=== PATIENT | female | born 1970 | race Caucasian/White ===

== ENCOUNTER → 2020-10-11 14:27 | Outpatient (CLI) | payer OTHER, SELFPAY ==
--- NOTE | 2020-10-11 14:40 | MR_ITS ---
PROCEDURE INFORMATION: Exam: MR Left Lower Extremity Without Contrast, Femur Exam date and time: 10/11/2020 2:40 PM Age: 50 years old Clinical indication: Pain; Thigh; Left; Additional info: Pain in left femur. PT fell sep 30 and has had posterior leg pain from hip to knee. Posterior leg bruising. No prior. TECHNIQUE: Imaging protocol: MR of the Left femur without contrast. COMPARISON: No relevant prior studies available. FINDINGS: Bones/joints: Minimal patellofemoral joint effusion. Evaluation of the knee is limited. Synovial and meniscal cysts: A multiloculated Piedra's cyst is visualized. Tendons: Complete tear of the left hamstring tendons, with approximately 2-3 cm of retraction distally. There is swelling adjacent to left hamstring tendon tear. A large fluid collection or hematoma is also identified in this region, which extends inferiorly within the posterior thigh. This measures 3.4 x 5.5 x 18.3 cm and is hyperintense on the IR sequence. A few focal areas of T1 hyperintensity are identified adjacent to the hamstring tendons at the level of the proximal to mid femoral shaft. One of the larger abnormalities measures 2.2 x 1.7 x 1.0 cm. These findings are consistent with hematomas. Muscles: See Tendons finding. Additional soft tissue swelling and patchy muscle edema is identified more inferiorly within the posterior left thigh. Soft tissues: See above. Lymph nodes: Nonspecific inguinal lymph nodes bilaterally. Nerves: The sciatic nerve appears thickened with surrounding swelling. There is increased IR signal intensity within this nerve, posterior to the acetabulum. Neuropathy is considered, although neural injury cannot be excluded. IMPRESSION: 1. Complete tear of the left hamstring tendons, with approximately 2-3 cm of retraction distally. 2. There is swelling adjacent to left hamstring tendon tear. A large fluid collection or hematoma is also identified in this region, which extends inferiorly within the posterior thigh. 3. A few focal areas of T1 hyperintensity are identified adjacent to the hamstring tendons at the level of the proximal to mid femoral shaft consistent with hematomas. 4. A multiloculated Piedra's cyst is visualized. 5. Minimal patellofemoral joint effusion. 6. The sciatic nerve appears thickened with surrounding swelling. Neuropathy is considered, although neural injury cannot be excluded. 7. Additional findings described above.
== END ==
PROVIDERS: PCP Physician Assistant Medical; Visit Provider Orthopaedic Surgery Adult Reconstructive Orthopaedic Surgery
DX: M79.652 Pain in left thigh (principal)
CPT/HCPCS: 73718

== ENCOUNTER 2020-11-12 12:26 | Emergency (ER) | payer OTHER, SELFPAY ==
[2020-11-12] VITALS (13 sets, daily range): BP systolic 103–128; BP diastolic 52–69; PULSE 77–104; RESP 18–20; TEMP 35.4–37.9; O2SAT 97–99; BMI 32.8
--- NOTE | 2020-11-12 12:40 | XR_ITS ---
PROCEDURE: XR CHEST PORTABLE CLINICAL HISTORY: fever Fever and cough COMPARISON: No exams were available for comparison FINDINGS: The cardiomediastinal silhouette and pulmonary vascularity are within normal limits. In the left hilar region there is a 8 mm nodular opacity. In the left mid to lower lung zone medially there is a 9 mm nodular opacity. Either 1 of these could represent overlapping vessels. Cannot exclude pulmonary nodule specially in the left mid to lower lung zone. The follow-up PA and lateral chest may provide further evaluation. No lobar consolidation or collapse . Small calcific density is present medial to the right humeral neck. IMPRESSION: No acute finding. Possible left-sided pulmonary nodules versus vessels on end Dictated by: James Mejía MD 11/12/2020 13:13 James Mejía MD in [place] 11/12/2020 13:13
[2020-11-12 12:48] LABS: Influenza A, PCR Not Detected (NotDetected); Influenza B, PCR Not Detected (NotDetected)
[2020-11-12 13:11] LABS: Coronavirus 19, PCR Detected (NotDetected)
--- NOTE | 2020-11-12 13:13 | [facility].EDGENADL ---
ED Disposition Clinical Impression: COVID Disposition: Home, Self-Care Condition on Discharge: Good Additional Instructions: Keep your appointment for monoclonal antibody infusion. Return to emergency department for worsening shortness of breath, chest pain, nausea or vomiting. Referrals: Evy Salmeron PA [Primary Care Provider] - (Call your PCP tomorrow) Time of Disposition: 14:01 - Critical Care Critical Care Time: No Attestation: On 11/12/20, the high probability of a clinically significant, sudden or life threatening deterioration of the following system(s) required my full and direct attention, intervention and personal management. The time I documented below is in addition to time spent performing reported procedures but includes the following listed in this critical care notation. Medical Decision Making - Medical Records Medical records reviewed: Yes: I reviewed the patient's medical records. - Grant Inquiry Pt receiving controlled substance: No Vital Signs: 11/12/20 12:27 Temperature 100.3 F H Temperature Source Oral Pulse Rate [Right Radial] 104 H Respiratory Rate 18 Blood Pressure [Right Arm] 103/56 L Blood Pressure Mean [Right Arm] 71 Blood Pressure Source [Right Arm] Automatic Cuff Blood Pressure Position [Right Arm] Sitting 02 Sat by Pulse Oximetry 97 Oxygen Delivery Method Room Air - Lab Data Lab results reviewed: Yes: I reviewed the patient's lab results. Lab Results 11/12/20 12:33: SARS-CoV-2 (PCR) Detected A, Influenza A Untype (PCR) Not detected, Influenza Type B (PCR) Not detected 11/12/20 13:19: WBC 3.7 L, RBC 4.40, Hgb 14.1, Hct 41.4, MCV 94.1, MCH 32.1 H, MCHC 34.1, RDW 12.5, Plt Count 179, MPV 7.5, Neut % (Auto) 73.0, Lymph % (Auto) 20.8, [place] % (Auto) 5.3, Eos % (Auto) 0.2, Baso % (Auto) 0.6, Neut # (Auto) 2.7, Lymph # (Auto) 0.8, [place] # (Auto) 0.2, Eos # (Auto) 0.0, Baso # (Auto) 0.0 11/12/20 13:19: Sodium 136, Potassium 4.2, Chloride 101, Carbon Dioxide 24, Anion Gap 15.2 H, BUN 12, Creatinine 0.90, Estimated Creat Clear 99, Estimated GFR 66, Est GFR ( Amer) 80, Glucose 105 H, Calcium 8.6, Total Bilirubin < 0.1 L, AST 37 H, ALT 21, Alkaline Phosphatase 82, Total Protein 6.8, Albumin 3.8, Globulin 3.0, Albumin/Globulin Ratio 1.3 Result diagrams: 11/12/20 13:19 11/12/20 13:19 - Radiology Data #1 Image(s): Chest Image Reviewed: Yes I reviewed the patient's radiology results Preliminary Findings: Normal/NAD Medical Decision Narrative: 50yo F evaluated with concern for Covid. Patient tested Covid positive. Her blood work is largely unremarkable. Chest x-ray is benign. Patient is holding O2 saturation greater than 95% on room air during her observation emergency department. Staff to set the patient up for monoclonal antibody infusion, hopefully tomorrow. General Adult HPI - General Chief complaint: Upper Respiratory Infection Stated complaint: soa, fever, chills, nausea Time Seen by Provider: 11/12/20 13:00 Mode of Arrival: Ambulatory Limitations: No Limitations Description of Symptoms (Recalled from ER Triage Doc. by RN): PT C/O FEVER, CHILLS, ACHES, PRODUCTIVE COUGH, RUNNY NOSE, AND BURNING WITH URINATION X10 DAYS - History of Present Illness HPI narrative: 50yo F presents the emergency department with fear of possible Covid. Known exposure. Reports she has been sick for 10 days. Complains of shortness of breath and a feeling of tightness in her chest and throat. Reports mild fever. States her oxygen saturations have been dropping below 90 at home whenever she talks or tries to sit up. Denies smoking, chronic medical issues. Takes no meds. - Related Data Home Medications Medication Instructions Recorded Confirmed Doxycycline Hyclate [Doxycycline 100 mg PO BID 02/18/19 02/18/19 100mg Capsule] Previous Rx's Medication Instructions Recorded Meclizine HCl [Meclizine 25mg Tab] 25 mg PO Q6HP PRN 10 Days #30 tab 02/18/19 methylPRED
[2020-11-12 13:45] LABS: Basophils % 0.6 % (0.1-2.0); Chloride 101 mmol/L (98-107); Eosinophils % 0.2 % (0.1-12.0); Hematocrit 41.4 % (37.0-47.0); Hemoglobin 14.1 g/dL (12.2-16.2); Lymphocytes # 0.8 K/mm3 (0.7-4.5); Lymphocytes % 20.8 % (10-50); Mean Corpuscular HGB Conc 34.1 g/dL (31.8-35.4); Mean Corpuscular Hemoglobin 32.1 pg (27.0-31.2); Mean Corpuscular Volume 94.1 fl (81-99); Mean Platelet Volume 7.5 fl (7.4-10.4); Monocytes # 0.2 K/mm3 (0.1-1.0); Monocytes % 5.3 % (1.7-9.3); Neutrophils # 2.7 K/mm3 (1.8-7.8); Platelet Count 179 K/mm3 (142-424); Potassium 4.2 mmoL/L (3.5-5.1); Red Cell Distribution Width 12.5 % (11.5-17.5); Sodium 136 mmol/L (136-145); White Blood Count 3.7 K/mm3 (4.8-10.8)
[2020-11-12 13:48] LABS: Alanine Aminotransferase 21 U/L (12-78); Albumin Level 3.8 g/dl (3.5-5.0); Albumin/Globulin Ratio 1.3 (1.1-1.8); Alkaline Phosphatase 82 U/L (38-126); Anion Gap 15.2 mEq/L (5-15); Aspartate Amino Transferase 37 U/L (14-36); Blood Urea Nitrogen 12 mg/dl (7-17); Calcium 8.6 mg/dl (8.4-10.2); Carbon Dioxide 24 mmol/L (22.0-30.0); Creatinine Clearance Estimated 99 mL/min (50-200); Estimated Glomerular Filt Rate 66 ml/min (>60); GFR (African American) 80 ML/MIN (>60); Glucose 105 mg/dl (74-100); Total Protein,Serum 6.8 g/dl (6.3-8.2)
[2020-11-12 13:54] LABS: Bilirubin,Total < 0.1 mg/dl (0.2-1.3)
--- NOTE | 2020-11-12 14:30 | PC.NURSE ---
pt to outpatient infusion area at this time to receive antibody infusion as ordered per ER MD, pt in outpatient infusion area r/t high ER volume. Care turned over to ang johnson at this time
[2020-11-12 15:32] LABS: Microscopic, Urine URINE MICROSCOPIC (MICROSCOPIC)
[2020-11-12 15:48] LABS: Appearance,Urine SL CLOUDY (Clear); Bilirubin,Urine Negative (Negative); Blood, Urine Negative (Negative); Color,Urine DK YELLOW (Yellow); Glucose,Urine (UA) Negative (Negative); Ketones,Urine TRACE (Negative); Leukocyte Esterase,Urine Negative (Negative); Nitrate,Urine POSITIVE (Negative); Protein,Urine 1+ (Negative); Specific Gravity, Urine >= 1.030 (1.005-1.030)
[2020-11-12 16:11] LABS: Bacteria,Urine 2+ /lpf; WBC,Urine Occasional #/hpf (0-3)
== END 2020-11-12 14:30 | disposition home or self-care (01) ==
PROVIDERS: Emergency Provider Family Medicine; PCP Physician Assistant Medical
DX: U07.1 COVID-19 (principal); N30.00 Acute cystitis without hematuria
CPT/HCPCS: 71045; 80053; 81001; 85025; 87086; 99282; C9803; U0003; U0005

== ENCOUNTER 2020-11-16 11:51 | Emergency (ER) | payer OTHER, SELFPAY ==
[2020-11-16 11:51] VITALS: BMI 32.8
--- NOTE | 2020-11-16 13:34 | XR_ITS ---
PROCEDURE INFORMATION: Exam: XR Chest Exam date and time: 11/16/2020 1:34 PM Age: 50 years old Clinical indication: Shortness of breath; Additional info: Eval for viral pna TECHNIQUE: Imaging protocol: XR of the chest. Views: 1 view. COMPARISON: CR XR CHEST PORTABLE 11/12/2020 1:05 PM FINDINGS: Lungs: Bilateral hyperinflation is present. Atelectasis and/or early infiltrative changes noted within both lung bases. Pleural spaces: Unremarkable. No pleural effusion. No pneumothorax. Heart/Mediastinum: Unremarkable. No cardiomegaly. Bones/joints: Unremarkable. IMPRESSION: 1. Bilateral hyperinflation is present. 2. Atelectasis and/or early infiltrative changes noted within both lung bases. The appearance has worsened since the prior study.
[2020-11-16 14:08] VITALS: BP 117/55; PULSE 95; O2SAT 98
[2020-11-16 15:00] VITALS: BP 127/73; PULSE 94; O2SAT 98
--- NOTE | 2020-11-16 15:32 | ECG_ITS ---
APPROVED REPORT Exam: Resting ECG HR:89 bpm ECG Measurements Heart Rate 89 AXES NE 138 P 35 QRSd 74 QRS 23 QT 350 T 65 QTc 425 Conclusion Normal sinus rhythm Normal ECG Electronically signed by : Fred Qiu MD 11/19/2020 17:40:49
[2020-11-16 15:36] LABS: Basophils % 0.5 % (0.1-2.0); Eosinophils % 0.4 % (0.1-12.0); Hematocrit 40.7 % (37.0-47.0); Hemoglobin 13.9 g/dL (12.2-16.2); Lymphocytes % 12.8 % (10-50); Mean Corpuscular HGB Conc 34.2 g/dL (31.8-35.4); Mean Corpuscular Hemoglobin 32.4 pg (27.0-31.2); Mean Corpuscular Volume 94.8 fl (81-99); Mean Platelet Volume 7.1 fl (7.4-10.4); Monocytes # 0.5 K/mm3 (0.1-1.0); Monocytes % 6.3 % (1.7-9.3); Neutrophils # 6.3 K/mm3 (1.8-7.8); Neutrophils % 79.9 % (37.0-80.0); Platelet Count 384 K/mm3 (142-424); Red Cell Distribution Width 12.2 % (11.5-17.5); White Blood Count 7.9 K/mm3 (4.8-10.8)
[2020-11-16 15:40] LABS: Anion Gap 16.1 mEq/L (5-15); Blood Urea Nitrogen 10 mg/dl (7-17); Calcium 8.8 mg/dl (8.4-10.2); Carbon Dioxide 25 mmol/L (22.0-30.0); Chloride 101 mmol/L (98-107); Estimated Glomerular Filt Rate 89 ml/min (>60); GFR (African American) 107 ML/MIN (>60); Glucose 118 mg/dl (74-100); Potassium 4.1 mmoL/L (3.5-5.1); Sodium 138 mmol/L (136-145)
[2020-11-16 15:56] LABS: Troponin I < 0.01 ng/ml (0.00-0.034)
[2020-11-16 16:40] VITALS: BP 116/80; PULSE 74; RESP 16; TEMP 36.7; O2SAT 98
--- NOTE | 2020-11-17 21:57 | [facility].EDGENADL ---
ED Disposition Clinical Impression: COVID Disposition: Home, Self-Care Condition on Discharge: Good Additional Instructions: Return to the emergency department for severe respiratory distress, inability to eat or drink for greater than 12 hours, or no urine output for greater than 12 hours. Begin taking Decadron once a day for 4 days. Begin 5-day course of azithromycin. You can use Zofran every 6 hours as needed for nausea. Prescriptions: dexAMETHasone [Decadron] 6 mg PO DAILY 4 Days #4 tab Transmission Status: Received by [facility] #[id number] Azithromycin [Z-Mike 250mg Tab*] 250 mg PO UD DOSE PK #6 tab Transmission Status: Received by [facility] #[id number] Ondansetron [Zofran 4mg ODT] 4 mg PO TIDP PRN #12 tab PRN Reason: Nausea Transmission Status: Received by [facility] #[id number] Referrals: Evy Salmeron PA [Primary Care Provider] - - Critical Care Critical Care Time: No Attestation: On 11/16/20, the high probability of a clinically significant, sudden or life threatening deterioration of the following system(s) required my full and direct attention, intervention and personal management. The time I documented below is in addition to time spent performing reported procedures but includes the following listed in this critical care notation. Medical Decision Making - Medical Records Medical records reviewed: Yes: I reviewed the patient's medical records. - Grant Inquiry Pt receiving controlled substance: No Vital Signs: 11/16/20 14:08 11/16/20 15:00 11/16/20 16:40 Temperature 98.1 F Temperature Source Oral Pulse Rate 95 H 94 H 74 Respiratory Rate 16 Blood Pressure 117/55 L 127/73 116/80 Blood Pressure Source Automatic Cuff Blood Pressure Position Sitting 02 Sat by Pulse Oximetry 98 98 Oxygen Delivery Method Room Air - Lab Data Lab Results 11/16/20 15:20: WBC 7.9, RBC 4.30, Hgb 13.9, Hct 40.7, MCV 94.8, MCH 32.4 H, MCHC 34.2, RDW 12.2, Plt Count 384, MPV 7.1 L, Neut % (Auto) 79.9, Lymph % (Auto) 12.8, [place] % (Auto) 6.3, Eos % (Auto) 0.4, Baso % (Auto) 0.5, Neut # (Auto) 6.3, Lymph # (Auto) 1.0, Carbon # (Auto) 0.5, Eos # (Auto) 0.0, Baso # (Auto) 0.0 11/16/20 15:20: Sodium 138, Potassium 4.1, Chloride 101, Carbon Dioxide 25, Anion Gap 16.1 H, BUN 10, Creatinine 0.70, Estimated GFR 89, Est GFR ( Amer) 107, Glucose 118 H, Calcium 8.8, Troponin I < 0.01 Result diagrams: 11/16/20 15:20 11/16/20 15:20 Orders (Tests/Meds): ED MEDICATIONS Discontinued Medications Generic Name Dose Route Start Last Admin Trade Name Jered PRN Reason Stop Dose Admin Dexamethasone Sodium Phosphate 10 mg 11/16/20 13:34 11/16/20 15:09 Dexamethasone 4mg/Ml 5ml Mdv IV 11/16/20 13:35 10 mg ONCE ONE Administration Ondansetron HCl 4 mg 11/16/20 13:34 11/16/20 15:09 Ondansetron 4mg Odt SL 11/16/20 13:35 4 mg ONCE ONE Administration Oxymetazoline HCl 2 ml 11/16/20 13:34 11/16/20 15:09 Oxymetazoline Nasal [place] 0.05% 15ml NS 11/16/20 13:35 2 inhalation ONCE ONE Administration Medical Decision Narrative: 50-year-old female without significant past medical history presents to the emergency department for evaluation of shortness of breath and chest pain related to COVID-19 infection. She has had ongoing infection for 2 weeks, and simply does not feel better. She presents to the emergency department in search of alternative medications or treatments as she continues to feel poorly after to 4 weeks. Patient's lab evaluation including troponin was unremarkable. Her EKG was unremarkable and showed normal sinus rhythm with no ST elevation or depression. She has no acute findings on chest x-ray and lungs appear to have a mild amount of haziness and fluid in the bilateral lower lung singh. She was given 1 L LR bolus, Tylenol, IV Toradol, and IV Decadron while in the emergency department. At this time, patient will be discharged in stable
== END 2020-11-16 16:46 | disposition home or self-care (01) ==
LOC: UTC 11:52 → ER 13:29
PROVIDERS: Emergency Medicine; Emergency Provider Nurse Practitioner Family; PCP Physician Assistant Medical
DX: U07.1 COVID-19 (principal); R07.9 Chest pain, unspecified; R53.1 Weakness
CPT/HCPCS: 71045; 80048; 84484; 85025; 93005; 96374; 99281